=== PATIENT | male | born 1955 | race Caucasian/White ===

== ENCOUNTER 2024-05-07 11:15 | Observation (INO) ==
[2024-05-07 11:59] LABS: ABS Eosinophils 0.1 10^3/uL (0.0-0.5); ABS Lymphocytes 1.4 10^3/uL (1.0-4.8); ABS Monocytes 0.6 10^3/uL (0.0-1.1); ABS Neutrophils 4.8 10^3/uL (1.5-7.6); ABS Nucleated RBC 0.01 10^3/ul; Eosinophil % 1.6 %; Hematocrit 46.1 % (38-53); Hemoglobin 15.8 g/dL (13.2-16.3); Lymphocyte % 19.7 %; Mean Corpuscular Hemoglobin 33.6 pg (27-33); Mean Corpuscular Hgb Conc 34.2 g/dL (31-36); Mean Corpuscular Volume 98.2 fL (80-97); Mean Platelet Volume 7.4 fL (7.5-11.2); Nucleated Red Blood Cells % 0.1 %/100WBC (0.0-0.8); Platelet Count 249 10^3/uL (150-450); Red Cell Distribution Width 14.3 % (12-17); White Blood Count 6.9 10^3/uL (3.6-10.2)
[2024-05-07 12:25] LABS: Calcium 8.9 mg/dL (8.6-10.3); Creatinine, Serum 0.79 mg/dL (0.67-1.17); Magnesium 2.3 mg/dL (1.9-2.7); eGFR CKD-EPI 96.8 (>60)
[2024-05-07 13:16] LABS: TSH Ultra Thyroid Stim Horm 0.74 mcIU/mL (0.34-5.60)
[2024-05-07 13:35] LABS: High Sensitivity Troponin 1 Hr 6 pg/mL (<20)
[2024-05-07] MEDS: Aspirin EC 81 mg TAB.EC (enteric coated) PO SCH (18:41)
[2024-05-07] MEDS: Enoxaparin 40 MG/0.4 ML SYR SUBCUT SCH (19:37)
[2024-05-07] MEDS: CMC:FLUTICAS/UMECLI/VILANT 100-62.5-25 MDI (NF) INH SCH (20:15)
[2024-05-08] MEDS: Isosorbide Mononit ER 30mg TAB PO SCH (09:21)
[2024-05-08] MEDS ORDERED: Regadenoson 0.4 MG/5 ML SYRINGE ONE (12:47)
[2024-05-08] MEDS: Sulfur Hexaflouride MICROSPHR 25 MG VIAL IV ONE (13:39)
[2024-05-08 14:28] VITALS: BP 103/70
== END 2024-05-08 17:09 ==
LOC: ED 11:15 → EDHOLD 11:15 → SUATTDRO 15:46 → EDHOLD 05-08 18:29
PROVIDERS: ADMIT Internal Medicine; ATTEND Internal Medicine